=== PATIENT | female | born 1995 | race African-American/Black ===

== ENCOUNTER 2022-05-01 07:34 | Emergency (ER) | payer MEDICAID ==
[2022-05-01] VITALS (8 sets, daily range): BP systolic 107–129; BP diastolic 75–82
[~2022-05-01] VITALS: Ht 162.6 cm; Wt 80.0 kg
[2022-05-01 08:04] LABS: HEMATOCRIT 35.8 % (37.0-47.0); IMMATURE GRANULOCYTES 0.3 % (0.0-5.0); MEAN CELL VOLUME 94.2 fL CALC (80.0-100.0); MEAN CORPUSCULAR HGB 31.6 pG CALC (26.0-32.0); MEAN CORPUSCULAR HGB CONC 33.5 g/dL CAL (32.0-36.0); NEUT# 2.87 thou/uL (2.00-7.15); RED BLOOD COUNT 3.8 mill/uL (4.20-5.60); RED CELL DISTRI WIDTH 11.9 % (11.5-15.5)
[2022-05-01 08:20] LABS: ALBUMIN 4.4 g/dL (3.2-5.0); ALKALINE PHOSPHATASE 47 u/l (38-126); ANION GAP 12 (6-22 (CALC)); BILIRUBIN, TOTAL 0.2 mg/dL (0.0-1.4); BUN 13 mg/dL (7-17); BUN/CREATININE RATIO 18 (12-20 (CALC)); CARBON DIOXIDE 24 mmol/l (22-30); CHLORIDE 107 mmol/l (95-108); CREATININE 0.7 mg/dL (0.5-1.0); GFR FOR AFR.AMER. > 60 ML/MIN (>=60 (CALC)); GFR OTHER RACES > 60 ML/MIN (>=60 (CALC)); POTASSIUM 3.9 mmol/l (3.5-5.1); SGOT/AST 21 u/l (14-36); SODIUM 139 mmol/l (137-146); TOTAL PROTEIN 7.9 g/dL (6.3-8.2)
[2022-05-01] MEDS ORDERED: DOXYCYCL HYC100 M4 PO (10:25)
[2022-05-01] MEDS ORDERED: MOTRIN400 MG/TAB PO (10:25)
== END 2022-05-01 11:08 | disposition home or self-care (01) ==
LOC: ED 07:34
PROVIDERS: Family Medicine
DX: J18.9 Pneumonia, unspecified organism (principal)

== ENCOUNTER 2022-08-21 14:25 | Emergency (ER) | payer MEDICAID ==
[2022-08-21] VITALS (9 sets, daily range): BP systolic 96–111; BP diastolic 58–69
[~2022-08-21] VITALS: Ht 162.6 cm; Wt 45.5 kg
[~2022-08-21 14:25] MED LIST: DOXYCYCL HYC100 M4 PO; MOTRIN400 MG/TAB PO
[2022-08-21 15:15] LABS: URINE BILIRUBIN - DIPSTICK NEGATIVE (NEGATIVE); URINE BLOOD DIPSTICK LARGE (NEGATIVE); URINE COLOR YELLOW; URINE GLUCOSE - DIPSTICK NEGATIVE (NEGATIVE); URINE KETONE NEGATIVE (NEGATIVE); URINE LEUK ESTERASE NEGATIVE (NEGATIVE); URINE PH 5.5 (4.5-8.0); URINE PROTEIN - DIPSTICK NEGATIVE (NEG-TRACE); URINE SPECIFIC GRAVITY >=1.030; URINE UROBILINOGEN - DIPSTICK 0.2 E.U./dL (0.2)
[2022-08-21 15:17] LABS: BASO% 0.3 % (0-3); EOS% 3.2 % (0-8); HEMATOCRIT 34.6 % (37.0-47.0); HEMOGLOBIN 11.7 g/dl (12.0-16.0); IMMATURE GRANULOCYTES 0.2 % (0.0-5.0); LYMPH% 40.8 % (15-41); MEAN CELL VOLUME 96.1 fL CALC (80.0-100.0); MEAN CORPUSCULAR HGB 32.5 pG CALC (26.0-32.0); MEAN CORPUSCULAR HGB CONC 33.8 g/dL CAL (32.0-36.0); MONO% 9.5 % (2-13); NEUT# 2.84 thou/uL (2.00-7.15); RED BLOOD COUNT 3.6 mill/uL (4.20-5.60); RED CELL DISTRI WIDTH 12.4 % (11.5-15.5)
[2022-08-21 15:18] LABS: URINE NITRITE - DIPSTICK NEGATIVE (Negative)
[2022-08-21 15:27] LABS: URINE SQUAMOUS EPITHELIAL CELL MODERATE EPI/hpf (0-FEW); URINE WBC 0-2 WBC/hpf (0-5)
[2022-08-21 15:38] LABS: ALBUMIN 4.6 g/dL (3.2-5.0); ALKALINE PHOSPHATASE 39 u/l (38-126); ANION GAP 11 (6-22 (CALC)); BUN 10 mg/dL (7-17); BUN/CREATININE RATIO 16 (12-20 (CALC)); CARBON DIOXIDE 25 mmol/l (22-30); CHLORIDE 106 mmol/l (95-108); CREATININE 0.7 mg/dL (0.5-1.0); GFR FOR AFR.AMER. > 60 ML/MIN (>=60 (CALC)); GFR OTHER RACES > 60 ML/MIN (>=60 (CALC)); POTASSIUM 3.5 mmol/l (3.5-5.1); SGOT/AST 28 u/l (14-36); SODIUM 139 mmol/l (137-146); TOTAL PROTEIN 7.8 g/dL (6.3-8.2)
[2022-08-21 15:43] LABS: BILIRUBIN, TOTAL 0.3 mg/dL (0.0-1.4)
[2022-08-21 15:55] LABS: BETA-HCG, QUANT(RESULT NUMBER) 2212 mIU/mL
== END 2022-08-21 17:03 | disposition home or self-care (01) ==
LOC: ED 14:25
PROVIDERS: Family Medicine; Nurse Practitioner
DX: O20.0 Threatened abortion (principal); Z3A.01 Less than 8 weeks gestation of pregnancy

== ENCOUNTER 2022-09-12 13:16 | Emergency (ER) | payer MEDICAID ==
[~2022-09-12] VITALS: Ht 162.6 cm; Wt 74.0 kg
[2022-09-12 14:18] VITALS: BP 121/69
[2022-09-12 14:52] LABS: BASO% 0.4 % (0-3); EOS% 4.3 % (0-8); HEMATOCRIT 35.5 % (37.0-47.0); HEMOGLOBIN 11.8 g/dl (12.0-16.0); IMMATURE GRANULOCYTES 0.1 % (0.0-5.0); LYMPH% 30.1 % (15-41); MEAN CELL VOLUME 97.3 fL CALC (80.0-100.0); MEAN CORPUSCULAR HGB 32.3 pG CALC (26.0-32.0); MEAN CORPUSCULAR HGB CONC 33.2 g/dL CAL (32.0-36.0); MONO% 9.9 % (2-13); NEUT# 3.83 thou/uL (2.00-7.15); NEUT% 55.2 % (42-76); RED BLOOD COUNT 3.65 mill/uL (4.20-5.60); RED CELL DISTRI WIDTH 12.2 % (11.5-15.5)
[2022-09-12 15:14] LABS: ALBUMIN 4.4 g/dL (3.2-5.0); ALKALINE PHOSPHATASE 39 u/l (38-126); ANION GAP 11 (6-22 (CALC)); BUN 13 mg/dL (7-17); BUN/CREATININE RATIO 17 (12-20 (CALC)); CARBON DIOXIDE 26 mmol/l (22-30); CHLORIDE 105 mmol/l (95-108); CREATININE 0.7 mg/dL (0.5-1.0); GFR FOR AFR.AMER. > 60 ML/MIN (>=60 (CALC)); GFR OTHER RACES > 60 ML/MIN (>=60 (CALC)); POTASSIUM 4.2 mmol/l (3.5-5.1); SGOT/AST 23 u/l (14-36); SODIUM 138 mmol/l (137-146); TOTAL PROTEIN 7.4 g/dL (6.3-8.2)
[2022-09-12 15:17] LABS: BILIRUBIN, TOTAL 0.1 mg/dL (0.0-1.4)
[2022-09-12 15:31] LABS: BETA-HCG, QUANT(RESULT NUMBER) 815 mIU/mL
[2022-09-12] MEDS ORDERED: HYDROCO/APAP1 TA9 PO (15:58)
[2022-09-12] MEDS ORDERED: MOTRIN800 MG PO (15:58)
[2022-09-12 16:07] VITALS: BP 113/68
[2022-09-12 16:15] VITALS: BP 105/72
== END 2022-09-12 16:23 | disposition home or self-care (01) ==
LOC: ED 13:16
PROVIDERS: Nurse Practitioner
DX: O03.9 Complete or unspecified spontaneous abortion without complication (principal)

== ENCOUNTER 2022-09-14 19:31 | Emergency (ER) | payer MEDICAID ==
[~2022-09-14] VITALS: Ht 162.6 cm; Wt 71.0 kg
[~2022-09-14 19:31] MED LIST changes: +HYDROCO/APAP1 TA9 PO; +MOTRIN800 MG PO
[2022-09-14 20:01] VITALS: BP 119/65
[2022-09-14 20:13] LABS: BASO% 0.3 % (0-3); EOS% 4.3 % (0-8); HEMATOCRIT 31.8 % (37.0-47.0); HEMOGLOBIN 10.4 g/dl (12.0-16.0); IMMATURE GRANULOCYTES 0.1 % (0.0-5.0); LYMPH% 38.6 % (15-41); MEAN CELL VOLUME 97.5 fL CALC (80.0-100.0); MEAN CORPUSCULAR HGB 31.9 pG CALC (26.0-32.0); MEAN CORPUSCULAR HGB CONC 32.7 g/dL CAL (32.0-36.0); MONO% 9.5 % (2-13); NEUT# 3.49 thou/uL (2.00-7.15); NEUT% 47.2 % (42-76); RED BLOOD COUNT 3.26 mill/uL (4.20-5.60); RED CELL DISTRI WIDTH 12.2 % (11.5-15.5)
[2022-09-14 20:25] LABS: ALBUMIN 3.8 g/dL (3.2-5.0); ALKALINE PHOSPHATASE 38 u/l (38-126); ANION GAP 8 (6-22 (CALC)); BUN 16 mg/dL (7-17); BUN/CREATININE RATIO 19 (12-20 (CALC)); CARBON DIOXIDE 26 mmol/l (22-30); CHLORIDE 110 mmol/l (95-108); CREATININE 0.8 mg/dL (0.5-1.0); GFR FOR AFR.AMER. > 60 ML/MIN (>=60 (CALC)); GFR OTHER RACES > 60 ML/MIN (>=60 (CALC)); POTASSIUM 4.1 mmol/l (3.5-5.1); SGOT/AST 22 u/l (14-36); SODIUM 140 mmol/l (137-146); TOTAL PROTEIN 6.6 g/dL (6.3-8.2)
[2022-09-14 21:25] LABS: URINE BILIRUBIN - DIPSTICK NEGATIVE (NEGATIVE); URINE BLOOD DIPSTICK LARGE (NEGATIVE); URINE COLOR YELLOW; URINE GLUCOSE - DIPSTICK NEGATIVE (NEGATIVE); URINE KETONE NEGATIVE (NEGATIVE); URINE LEUK ESTERASE NEGATIVE (NEGATIVE); URINE PROTEIN - DIPSTICK TRACE mg/dL (NEG-TRACE); URINE UROBILINOGEN - DIPSTICK 0.2 E.U./dL (0.2)
[2022-09-14 21:26] LABS: URINE NITRITE - DIPSTICK NEGATIVE (Negative)
[2022-09-14] MEDS ORDERED: LORTAB 1010 MG PO (22:00)
[2022-09-14 22:08] VITALS: BP 119/65
== END 2022-09-14 22:25 | disposition home or self-care (01) ==
LOC: ED 19:31
PROVIDERS: Emergency Medicine
DX: O03.9 Complete or unspecified spontaneous abortion without complication (principal)

== ENCOUNTER 2023-10-27 11:06 | Emergency (ER) | payer MEDICAID ==
[~2023-10-27] VITALS: Ht 162.6 cm; Wt 83.4 kg
[~2023-10-27 11:06] MED LIST changes: +LORTAB 1010 MG PO
[2023-10-27 12:36] VITALS: BP 115/71
[2023-10-27] MEDS ORDERED: KETOROLAC TROMETHAMINE 30 MG/ML SDV IM ONE (12:55)
[2023-10-27] MEDS ORDERED: ACETAMINOPHEN 500 MG TAB PO ONE (12:55)
[2023-10-27 13:00] VITALS: BP 119/76
[2023-10-27 13:31] LABS: BASO% 0.2 % (0-3); EOS% 2.1 % (0-8); HEMATOCRIT 34.7 % (37.0-47.0); HEMOGLOBIN 11.9 g/dl (12.0-16.0); IMMATURE GRANULOCYTES 0.1 % (0.0-5.0); LYMPH% 27.5 % (15-41); MEAN CELL VOLUME 94.8 fL CALC (80.0-100.0); MEAN CORPUSCULAR HGB 32.5 pG CALC (26.0-32.0); MEAN CORPUSCULAR HGB CONC 34.3 g/dL CAL (32.0-36.0); MONO% 9.8 % (2-13); NEUT# 5.61 thou/uL (2.00-7.15); NEUT% 60.3 % (42-76); RED BLOOD COUNT 3.66 mill/uL (4.20-5.60); RED CELL DISTRI WIDTH 11.7 % (11.5-15.5)
[2023-10-27 13:46] LABS: ALBUMIN 4.5 g/dL (3.2-5.0); ALKALINE PHOSPHATASE 54 u/l (38-126); ANION GAP 11 (6-22 (CALC)); BUN 8 mg/dL (7-17); BUN/CREATININE RATIO 13 (12-20 (CALC)); CARBON DIOXIDE 24 mmol/l (22-30); CHLORIDE 107 mmol/l (95-108); CREATININE 0.6 mg/dL (0.5-1.0); GFR FOR AFR.AMER. > 60 ML/MIN (>=60 (CALC)); GFR OTHER RACES > 60 ML/MIN (>=60 (CALC)); POTASSIUM 4.1 mmol/l (3.5-5.1); SGOT/AST 23 u/l (14-36); SODIUM 137 mmol/l (137-146); TOTAL PROTEIN 7.5 g/dL (6.3-8.2)
[2023-10-27 13:49] LABS: BILIRUBIN, TOTAL 0.4 mg/dL (0.02-1.3)
[2023-10-27] MEDS ORDERED: PRENATAL/FE PO (14:59)
[2023-10-27] MEDS ORDERED: ZOFRAN4 MG/TAB PO (14:59)
[2023-10-27 15:02] VITALS: BP 119/76
== END 2023-10-27 15:27 | disposition home or self-care (01) ==
LOC: ED 11:06
PROVIDERS: Family Medicine
DX: R07.89 Other chest pain (principal)